=== PATIENT | female | born 1990 | race Caucasian/White ===

== ENCOUNTER 2020-04-22 22:26 | Emergency (ER) | payer MEDICAID, OTHER, SELFPAY ==
[~2020-04-22] VITALS: Ht 170.2 cm; Wt 111.6 kg
[2020-04-22] MEDS ORDERED: TIZA2CAP PO (22:33)
[2020-04-22] MEDS ORDERED: SERT100T PO (22:33)
[2020-04-22] MEDS ORDERED: CLON0.1T22 PO (22:33)
[2020-04-22] MEDS ORDERED: FAMOTIDINE 20 MG/2 ML IVPush ONE (23:00)
[2020-04-22] MEDS ORDERED: SODIUM CHLORIDE 0.9% 1,000ML IVBOLUS ONE (23:00)
[2020-04-22] MEDS ORDERED: SODIUM CHLORIDE FLUSH 10ML SYR IVF ONE (23:00)
[2020-04-22] MEDS ORDERED: ONDANSETRON 2MG/ML, 2ML ONE (23:00)
[2020-04-22] MEDS ORDERED: ONDANSETRON 2MG/ML, 2ML IVPush ONE (23:00)
--- NOTE | 2020-04-22 23:00 | NUR ---
TASK RN: PIV INSERTED, LABS DRAWN, URINE WALKED TO LAB
[2020-04-22] MEDS ORDERED: FAMOTIDINE 20 MG/2 ML ONE (23:01)
[2020-04-22 23:05] LABS: BASOPHILS % (AUTO) 1 % (0-1); EOSINOPHILS % (AUTO) 1 % (1-7); LYMPHOCYTES % (AUTO) 44 % (22-44); MEAN CORPUSCULAR HEMOGLOBIN 32.6 pg (27.0-34.8); MEAN CORPUSCULAR HGB CONC 34.7 g/dL (32.4-35.8); MEAN PLATELET VOLUME 8.6 fL (7.4-10.4); MONOCYTES % (AUTO) 7 % (2-9); NEUTROPHILS % (AUTO) 47 % (42-75); PLATELET COUNT 264 x10^3/uL (130-400); RED CELL DISTRIBUTION WIDTH 12.7 % (9.6-15.2)
[2020-04-22 23:06] LABS: MD NO
[2020-04-22 23:15] LABS: ALANINE AMINOTRANSFERASE 73 U/L (12-78); ALBUMIN 3.6 g/dL (3.4-5.0); ANION GAP 6 mmol/L (5-15); CALCIUM 8.8 mg/dL (8.5-10.1); CHLORIDE 109 mmol/L (98-107); CREATININE 0.78 mg/dL (0.55-1.02)
[2020-04-22 23:20] LABS: ALKALINE PHOSPHATASE 73 U/L (45-117); BILIRUBIN,TOTAL 0.2 mg/dL (0.2-1.0)
--- NOTE | 2020-04-22 23:25 | NUR ---
PT RESTING ON GURNEY, NAD, WAITING FOR CT SCAN, PLACD ON 2L NC FOR O2, SATS INCREASED TO 94%. BED IN LOWEST, DENIES ADDITIONAL QUESTIONS OR NEEDS, CALL LIGHT ON LAP. WCTM
[2020-04-22 23:42] LABS: MICROSCOPIC INDICATED
[2020-04-23 00:20] VITALS: BP 153/96
--- NOTE | 2020-04-23 00:20 | NUR ---
PT TO AND FROM CT VIA [facility]US[facility], NAD, RESTING ON GURNEY, APPEARS COMFORTABLE, CALL LIGHT ON LAP, EYES CLOSED. EVEN AND UNLABORED RESPIRATIONS NOTED. WCTM. WAITING FOR CT READ
--- NOTE | 2020-04-23 00:41 | NUR ---
Patient given VERBAL discharge instructions and REFUSED TO WAIT FOR PAPERS. PT ATTEMPTED TO LEAVE ER WITH IV, STATING "YOU DONT NEED TO TAKE IT OUT, I CAN JUST LEAVE WITH IT". RN FOLLOWED PT OUT TO REMOVE IV PRIOR TO LEAVING. Patient ambulatory with steady gait. NO PERSONAL BELONGINGS NOTED IN ROOM AT MT.
== END 2020-04-23 00:04 | disposition home or self-care (01) ==
LOC: ED 22:51
DX: K29.20 Alcoholic gastritis without bleeding (principal); I10 Essential (primary) hypertension; F17.200 Nicotine dependence, unspecified, uncomplicated
CPT/HCPCS: 36415; 74176; 80053; 80307; 81001; 83690; 84703; 85025; 96361; 96374; 96375; 99284; J2405; J7030